=== PATIENT | male | born 1980 | race Caucasian/White ===

== ENCOUNTER 2020-12-06 20:28 | Inpatient (IN) | payer BC, OTHER ==
[~2020-12-06] VITALS: Ht 190.5 cm; Wt 221.8 kg
[~2020-12-06 20:28] MED LIST: ECOTRIN81 MG PO; NITROSTAT0.4 MG SL
[2020-12-06 21:34] LABS: HEMOGLOBIN 15.3 gm/dl (14.0-17.5); RED BLOOD COUNT 5.33 M/UL (4.20-5.50); WHITE BLOOD COUNT 10.7 K/UL (4.5-11.0)
[2020-12-06 21:57] LABS: BUN/CREATININE RATIO 10 (0-10)
[2020-12-07] MEDS ORDERED: HYZAAR 100-251 EACH PO (12:38)
[2020-12-08 03:50] LABS: HEMOGLOBIN 14.5 gm/dl (14.0-17.5); WHITE BLOOD COUNT 10.5 K/UL (4.5-11.0)
[2020-12-08 04:02] LABS: RED BLOOD COUNT 4.79 M/UL (4.20-5.50)
[2020-12-08 04:32] LABS: BUN/CREATININE RATIO 15 (0-10)
[2020-12-09 09:41] LABS: HEMOGLOBIN 14.9 gm/dl (14.0-17.5); RED BLOOD COUNT 4.84 M/UL (4.20-5.50); WHITE BLOOD COUNT 8.9 K/UL (4.5-11.0)
[2020-12-09 09:43] LABS: BUN/CREATININE RATIO 17 (0-10)
[2020-12-10 10:02] LABS: HEMOGLOBIN 13.8 gm/dl (14.0-17.5); RED BLOOD COUNT 4.53 M/UL (4.20-5.50)
[2020-12-10 11:05] LABS: BUN/CREATININE RATIO 15 (0-10)
[2020-12-11 03:24] LABS: HEMOGLOBIN 13.4 gm/dl (14.0-17.5); RED BLOOD COUNT 4.41 M/UL (4.20-5.50)
[2020-12-11 03:37] LABS: WHITE BLOOD COUNT 9.2 K/UL (4.5-11.0)
[2020-12-11 04:04] LABS: BUN/CREATININE RATIO 15 (0-10)
[2020-12-11] MEDS ORDERED: GLUCOPHAGE 500500 MG PO (17:45)
[2020-12-11] MEDS ORDERED: PROTONIX 40 MG40 M1 PO (17:45)
[2020-12-11] MEDS ORDERED: HYDROCHLOROTHIA25 MG PO (17:45)
[2020-12-11] MEDS ORDERED: ASPIRIN EC81 MG PO (17:45)
[2020-12-11] MEDS ORDERED: LISINOPRIL10 MG PO (17:45)
[2020-12-11] MEDS ORDERED: HUMALOG100 UNIT/3 SC (17:53)
[2020-12-11] MEDS ORDERED: LANTUS SOL100 UNIT/1 SQ (17:53)
== END 2020-12-11 18:29 | disposition home or self-care (01) | DRG 392 ==
LOC: ER1 20:28 → CDU 12-07 02:52 → MED SURG 4 12-09 13:51
PROVIDERS: Internal Medicine; Physician Assistant; ADMIT Internal Medicine
DX: R10.9 Unspecified abdominal pain (principal); E66.2 Morbid (severe) obesity with alveolar hypoventilation; Z68.44 Body mass index [BMI] 60.0-69.9, adult; I10 Essential (primary) hypertension; E11.65 Type 2 diabetes mellitus with hyperglycemia; F17.210 Nicotine dependence, cigarettes, uncomplicated
CPT/HCPCS: 36415; 80048; 80053; 80061; 81001; 82962; 83036; 83690; 83735; 84100; 84153; 84439; 84443; 85025; 87086; 93005; 99285; G0378; J1650; J7030; U0002